=== PATIENT | male | born 1980 | race Hispanic/Latino ===

== ENCOUNTER 2019-08-07 14:36 | Emergency (ER) | payer BC, OTHER ==
--- NOTE | 2019-08-07 15:02 | EDPHYS ---
Physician Documentation [facility] Name: Isma Redmond Age: 39 yrs Sex: Male : 1980 Arrival Date: 08/07/2019 Time: 14:44 Bed 23 Private MD: ED Physician Ike Navarro HPI: 08/07 14:58 This 39 yrs old Male presents to ER via Unassigned with complaints of Allergic kb Reaction. 14:58 The patient presents with itching, rash, that is diffuse. Onset: The symptoms/episode kb began/occurred yesterday. Associated signs and symptoms: Pertinent positives: rash. Possible causes: energy drink + preworkout. At home the patient or guardian has treated the symptoms with Benadryl. Severity of symptoms: At their worst the symptoms were mild moderate in the emergency department the symptoms are unchanged. The patient has not experienced similar symptoms in the past. The patient has not recently seen a physician. Historical: - Allergies: 15:06 No Known Allergies; vc - Home Meds: 15:06 None [Active]; vc - PMHx: 15:06 None; vc - PSHx: 15:06 None; vc - Immunization history:: Adult Immunizations up to date. - Coronavirus screen:: The patient has NOT traveled to [place] in the past 14 days. - Social history:: Smoking status: Patient denies any tobacco usage or history of. - Ebola Screening: : Patient negative for fever greater than or equal to 101.5 degrees Fahrenheit, and additional compatible Ebola Virus Disease symptoms. ROS: 14:58 Constitutional: Negative for fever, chills, and weight loss, ENT: Negative for injury, kb pain, and discharge, Neck: Negative for injury, pain, and swelling, Cardiovascular: Negative for chest pain, palpitations, and edema, Respiratory: Negative for shortness of breath, cough, wheezing, and pleuritic chest pain, Abdomen/GI: Negative for abdominal pain, nausea, vomiting, diarrhea, and constipation, Back: Negative for injury and pain, MS/Extremity: Negative for injury and deformity, Neuro: Negative for headache, weakness, numbness, tingling, and seizure. 14:58 Skin: Positive for rash, diffusely. Exam: 14:58 Constitutional: This is a well developed, well nourished patient who is awake, alert, kb and in no acute distress. Head/Face: Normocephalic, atraumatic. ENT: Nares patent. No nasal discharge, no septal abnormalities noted. Tympanic membranes are normal and external auditory canals are clear. Oropharynx with no redness, swelling, or masses, exudates, or evidence of obstruction, uvula midline. Mucous membranes moist. Neck: Trachea midline, no thyromegaly or masses palpated, and no cervical lymphadenopathy. Supple, full range of motion without nuchal rigidity, or vertebral point tenderness. No Meningismus. Chest/axilla: Normal chest wall appearance and motion. Nontender with no deformity. No lesions are appreciated. Cardiovascular: Regular rate and rhythm with a normal S1 and S2. No gallops, murmurs, or rubs. Normal PMI, no JVD. No pulse deficits. Respiratory: Lungs have equal breath sounds bilaterally, clear to auscultation and percussion. No rales, rhonchi or wheezes noted. No increased work of breathing, no retractions or nasal flaring. Abdomen/GI: Soft, non-tender, with normal bowel sounds. No distension or tympany. No guarding or rebound. No evidence of tenderness throughout. Back: No spinal tenderness. No costovertebral tenderness. Full range of motion. MS/ Extremity: Pulses equal, no cyanosis. Neurovascular intact. Full, normal range of motion. Neuro: Awake and alert, GCS 15, oriented to person, place, time, and situation. Cranial nerves II-XII grossly intact. Motor strength 5/5 in all extremities. Sensory grossly intact. Cerebellar exam normal. Normal gait. 14:58 Skin: rash a moderate rash is noted, rash can be described as macular, papular, and is diffusely located. Vital Signs: 15:00 BP 127 / 82; Pulse 74; Resp 17; Pulse Ox 97% on R/A; vc MDM: 14:51 Patient medically screened. kb 14:58 Data reviewed: vital signs, nurses notes. Data interpreted: Pulse oximetry: on room air kb is 100 %. Interpretation: normal. Counseling: I had a detailed discussion with the patient and/or guardian regarding: the historical points, exam findings, and any diagnostic results supporting the discharge/admit diagnosis, the need for outpatient follow up, a family practitioner, to return to the emergency department if symptoms worsen or persist or if there are any questions or concerns that arise at home. Administered Medications: 15:08 Drug: predniSONE 40 mg Route: PO; vc 15:09 Follow up: Response: Medication administered at discharge. vc 15:08 Drug: Pepcid 20 mg Route: PO; vc 15:08 Follow up: Response: Medication administered at discharge. vc Disposition: 17:49 Co-signature as Attending Physician, Ike Navarro MD. rn Disposition: 08/07/19 15:00 Discharged to Home. Impression: Rash and other nonspecific skin eruption. - Condition is Stable. - Discharge Instructions: Rash, [id number], Allergies, [id number]. - Prescriptions for Pepcid 20 mg Oral Tablet - take 1 tablet by ORAL route every 12 hours for 5 days; 10 tablet. Prednisone 20 mg Oral Tablet - take 1 tablet by ORAL route once daily for 5 days; 5 tablet. - Medication Reconciliation Form, Thank You Letter, Antibiotic Education, Prescription Opioid Use form. - Follow up: Private Physician; When: 2 - 3 days; Reason: Recheck today's complaints, Continuance of care, Re-evaluation by your physician. Follow up: Emergency Department; When: As needed; Reason: Worsening of condition. Signatures: Orin Delgado, LUMBER TYING MACHINE OPERATOR-C LUMBER TYING MACHINE OPERATOR-Ckb Ike Navarro MD MD rn Calcote, Vanessa, RN RN vc Corrections: (The following items were deleted from the chart) 15:15 15:00 08/07/2019 15:00 Discharged to Home. Impression: Rash and other nonspecific skin vc eruption. Condition is Stable. Forms are Medication Reconciliation Form, Thank You Letter, Antibiotic Education, Prescription Opioid Use. Follow up: Private Physician; When: 2 - 3 days; Reason: Recheck today's complaints, Continuance of care, Re-evaluation by your physician. Follow up: Emergency Department; When: As needed; Reason: Worsening of condition. kb
[2019-08-07] MEDS ORDERED: predniSONE 20 MG TAB ONE (15:04)
[2019-08-07] MEDS ORDERED: FAMOTIDINE 20 MG TAB ONE (15:04)
--- NOTE | 2019-08-07 15:17 | ER ---
Nurse's Notes [facility] Name: Isma Redmond Age: 39 yrs Sex: Male : 1980 Arrival Date: 08/07/2019 Time: 14:44 Bed 23 Private MD: Diagnosis: Rash and other nonspecific skin eruption Presentation: 08/07 15:01 Presenting complaint: Patient states: itchy rash all over body started yesterday, iw thinks it may be a reaction to some energy drinks. Transition of care: patient was not received from another setting of care. Onset: The symptoms/episode began/occurred yesterday. Anaphylaxis evaluation, no signs or symptoms of anaphylaxis were noted. Onset of symptoms was August 06, 2019. Risk Assessment: Do you want to hurt yourself or someone else? Patient reports no desire to harm self or others. Initial Sepsis Screen: Does the patient meet any 2 criteria? No. Patient's initial sepsis screen is negative. Does the patient have a suspected source of infection? No. Patient's initial sepsis screen is negative. Care prior to arrival: None. 15:01 Method Of Arrival: Ambulatory iw 15:01 Acuity: PADMA 5 iw Triage Assessment: 15:04 General: Appears in no apparent distress. comfortable, Behavior is calm, cooperative, vc appropriate for age. Historical: - Allergies: 15:06 No Known Allergies; vc - Home Meds: 15:06 None [Active]; vc - PMHx: 15:06 None; vc - PSHx: 15:06 None; vc - Immunization history:: Adult Immunizations up to date. - Coronavirus screen:: The patient has NOT traveled to [place] in the past 14 days. - Social history:: Smoking status: Patient denies any tobacco usage or history of. - Ebola Screening: : Patient negative for fever greater than or equal to 101.5 degrees Fahrenheit, and additional compatible Ebola Virus Disease symptoms. Screenin:04 Abuse screen: Denies threats or abuse. Nutritional screening: No deficits noted. vc Tuberculosis screening: No symptoms or risk factors identified. Fall Risk None identified. Assessment: 15:04 Pain: Denies pain. Respiratory: Airway is patent Respiratory effort is even, unlabored, vc Breath sounds are clear. Vital Signs: 15:00 BP 127 / 82; Pulse 74; Resp 17; Pulse Ox 97% on R/A; vc ED Course: 14:44 Patient arrived in ED. fj1 14:50 Orin Delgado FNP-C is [facility]. kb 14:50 Ike Navarro MD is Attending Physician. kb 14:57 Amy Duran, RN is Primary Nurse. vc 15:02 Triage completed. iw 15:05 Arm band placed on. vc 15:07 Patient has correct armband on for positive identification. vc 15:14 No provider procedures requiring assistance completed. Patient did not have IV access vc during this emergency room visit. Administered Medications: 15:08 Drug: predniSONE 40 mg Route: PO; vc 15:09 Follow up: Response: Medication administered at discharge. vc 15:08 Drug: Pepcid 20 mg Route: PO; vc 15:08 Follow up: Response: Medication administered at discharge. vc Outcome: 15:00 Discharge ordered by . kb 15:14 Discharged to home ambulatory. vc 15:14 Condition: good 15:14 Discharge instructions given to patient, Instructed on discharge instructions, follow up and referral plans. medication usage, Demonstrated understanding of instructions, follow-up care, medications, Prescriptions given X 2. 15:15 Patient left the ED. vc Signatures: Orin Delgado FNP-C FNP-Mary Barrera RN RN Amy Duran, RN RN Daniel Wolfe fj1
[2019-08-07 16:06] VITALS: BP 127/82; O2SAT 97
== END 2019-08-07 15:15 | disposition home or self-care (01) ==
LOC: ER 14:36
DX: R21 Rash and other nonspecific skin eruption (principal)
CPT/HCPCS: 99283; J7512